=== PATIENT | female | born 1935 | race Caucasian/White ===

== ENCOUNTER → 2017-01-15 | Outpatient (CLI) | payer OTHER ==
[2017-01-15 11:39] LABS: BASOPHILS # (AUTO) 0.1 X10^3/uL (0.0-0.1); BASOPHILS % (AUTO) 0.7 % (0.2-1.0); EOSINOPHILS # (AUTO) 0.2 x10^3/uL (0.0-0.2); EOSINOPHILS % (AUTO) 1.7 % (0.9-2.9); HEMATOCRIT 38.3 % (36.0-47.0); HEMOGLOBIN 12.7 g/dL (12.0-16.0); LYMPHOCYTES # (AUTO) 1.7 X10^3/uL (1.3-2.9); LYMPHOCYTES % (AUTO) 17.4 % (21.0-51.0); MEAN CORPUSCULAR HEMOGLOBIN 28.5 pg (27.0-34.0); MEAN CORPUSCULAR HGB CONC 33.2 g/dL (33.0-35.0); MEAN CORPUSCULAR VOLUME 85.7 fL (80.0-100.0); MEAN PLATELET VOLUME 8.3 fL (7.4-11.0); MONOCYTES # (AUTO) 0.7 x10^3/uL (0.3-0.8); MONOCYTES % (AUTO) 7.3 % (0.0-13.0); NEUTROPHILS % (AUTO) 72.9 % (42.0-75.0); PLATELET COUNT 227 X10^3/uL (150.0-450.0); RED BLOOD COUNT 4.47 X10^6/uL (3.5-5.4); RETICULOCYTE % 1.58 % (0.8-2.2); WHITE BLOOD COUNT 9.6 X10^3/uL (3.6-10.0)
[2017-01-15 11:52] LABS: CREATININE,URINE 23.61 mg/dL (29-226)
[2017-01-15 11:59] LABS: HEMOGLOBIN A1C 7.4 % (4.5-6.2)
[2017-01-15 12:32] LABS: ALBUMIN 4.2 g/dL (3.4-5.0); BLOOD UREA NITROGEN 41 mg/dL (7-18); CALCIUM 9.2 mg/dL (8.5-10.1); CARBON DIOXIDE 27.1 mmol/L (21-32); CHLORIDE 104 mmol/L (98-107); CHOL/HDL RATIO 5.7 (0.0-5.0); CHOLESTEROL 204 mg/dL (0-200); COR NA(FOR HYPERGLY) 146 mmol/L (136-145); CREATININE 2.15 mg/dL (0.55-1.02); GLUCOSE 215 mg/dL (65-99); HDL CHOLESTEROL 36 mg/dL (40-60); PHOSPHORUS 3.8 mg/dL (2.6-4.7); SODIUM 143 mmol/L (136-145); T4 (THYROXINE) 10.2 ug/dL (4.7-13.3); TRIGLYCERIDES 266 mg/dL (0-150); TSH (3RD GENERATION) 2.114 uIU/mL (0.358-3.74); URIC ACID 9.8 mg/dL (2.6-6.0); eGFR BLACK RACES 28 (>60); eGFR NON BLACK RACES 23 (>60)
[2017-01-15 12:37] LABS: ERYTHROCYTE SEDIMENTATION RATE 23 MM/HOUR (0-20)
== END ==
LOC: LAB 10:31
PROVIDERS: ATTEND Nurse Practitioner Family
DX: I12.9 Hypertensive chronic kidney disease with stage 1 through stage 4 chronic kidney disease, or unspecified chronic kidney disease (principal); N18.3 Chronic kidney disease, stage 3 (moderate); R60.0 Localized edema; E11.21 Type 2 diabetes mellitus with diabetic nephropathy
CPT/HCPCS: 36415; 80061; 80069; 82043; 83036; 84436; 84443; 84550; 85025; 85045; 85652; 86140